=== PATIENT | male | born 1950 | race Caucasian/White ===

== ENCOUNTER 2019-06-02 08:53 | Day surgery (SDC) ==
[2019-06-01 14:23] LABS: HEMATOCRIT 43.9 % (42.0-52.0); HEMOGLOBIN 15.5 g/dL (14.0-18.0); MCH 29.6 PG (27-31); MCHC 35.3 g/dL (33-37); MCV 83.8 FL (81-99); RBC 5.24 XMIL (4.7-6.1); WBC 6.29 X1000 (4.8-10.8)
[2019-06-01 14:24] LABS: BASO# 0.02 X1000 (0.0-0.2); BASO% 0.3 % (0.0-0.8); EOS% 3.2 % (0.0-10.0); IMM GRAN# 0.03 X1000 (0.0-0.04); IMM GRAN% 0.5 % (0.0-0.5); LYMPH# 1.74 X1000 (1.2-3.4); LYMPH% 27.7 % (20.5-51.1); MONO# 0.59 X1000 (0.11-0.59); MONO% 9.4 % (1.7-9.3); MPV 9.6 FL (7.4-10.4); NEUT# 3.71 X1000 (1.4-6.5); NEUT% 58.9 % (42.2-75.2); PLT 281 X1000 (130-400)
--- NOTE | 2019-06-01 14:26 | Diag Imaging Result Doc PS360 ---
EXAM: CHEST-2 VIEWS 06/01/2019 HISTORY: PAT TECHNIQUE: PA and lateral chest COMMENT: There is no evidence of acute cardiac or pulmonary disease. Compared to 07/08/2018 there has been no significant change in the appearance of the chest. IMPRESSION: Stable chest. Electronically signed by Andrea Nguyễn 06/01/2019 2:23 PM
[2019-06-01 14:43] LABS: INR 1.13; PROTIME 14.6 Seconds (11.0-16.0)
[2019-06-01 14:44] LABS: PTT 33.8 Seconds (22.3-41.8)
[2019-06-01 14:46] LABS: AGAP 12; ALB/GLOB RATIO 1.3; ALBUMIN 4.4 g/dL (3.5-5.0); ALKALINE PHOSPHATASE 71 U/L (32-122); BUN 17 mg/dL (8-22); CALCIUM 9.5 mg/dL (8.8-10.2); CHLORIDE 103 mmol/L (98-107); COSMO 282; CREATININE 0.8 mg/dL (0.7-1.2); ESTIMATED GFR > 60; GLUCOSE 115 mg/dL (70-104); GOT 20 U/L (10-34); GPT 25 U/L (10-44); MAGNESIUM 2.1 mg/dL (1.5-2.7); SODIUM 140 mmol/L (136-145); TCO2 25 mmol/L (25-35); TOTAL BILIRUBIN 0.92 mg/dL (0.20-1.00); TOTAL PROTEIN 7.7 g/dL (6.3-8.3)
[~2019-06-02 08:53] MED LIST: HEPARIN 1000 UNITS/NS 2,000 UNIT/1,000 ML IV.SOLN ONE; XYLOCAINE 1% ONE
[2019-06-02] MEDS ORDERED: NS 1,000 ML ONE (09:38)
[2019-06-02] MEDS ORDERED: MORPHINE ONE (12:37)
[2019-06-02] MEDS ORDERED: VERSED ONE (12:37)
--- NOTE | 2019-06-02 14:13 | EKG Report ---
Test Performed on : 06/02/2019 2:07:28 PM Test Reason : s/p heart cath Blood Pressure : / mmHG Vent. Rate : 063 BPM Atrial Rate : 063 BPM P-R Int : 184 ms QRS Dur : 088 ms QT Int : 422 ms P-R-T Axes : 055 039 049 degrees QTc Int : 431 ms Normal sinus rhythm. Normal ECG No previous ECGs available Confirmed by Herlinda YOST, Kristian Neal ([id number]) on 06/02/2019 5:28:31 PM
[2019-06-02] MEDS ORDERED: CEPACOL SORE THROAT LOZENGE MT PRN (14:23)
[2019-06-02] MEDS ORDERED: MAGNESIUM SULFATE 3 GM in NS 100 ML IV PRN (14:23)
[2019-06-02] MEDS ORDERED: PERCOCET-5 PO PRN (14:23)
[2019-06-02] MEDS ORDERED: NITROGLYCERIN SL PRN (14:23)
[2019-06-02] MEDS ORDERED: ZOFRAN IV PRN (14:23)
[2019-06-02] MEDS ORDERED: RESTORIL PO PRN (14:23)
[2019-06-02] MEDS ORDERED: KLOR-CON PO PRN ×3 (14:23)
[2019-06-02] MEDS ORDERED: MAGNESIUM SULFATE 2 GM in STERILE WATER INJ. 50 ML IV PRN ×4 (14:23)
[2019-06-02] MEDS ORDERED: XANAX PO PRN (14:23)
[2019-06-02] MEDS ORDERED: MILK OF MAGNESIA PO PRN (14:23)
[2019-06-02] MEDS ORDERED: DULCOLAX PR PRN (14:23)
[2019-06-02] MEDS ORDERED: TYLENOL PO PRN (14:23)
[2019-06-02 16:50] VITALS: BP 130/74
--- NOTE | 2019-06-03 01:03 | CARDIAC CATH REPORT ---
PROCEDURE NAME: - PROCEDURE PERFORMED: Left heart catheterization and selective coronary angiography, and left ventriculography. INDICATIONS: Recent abnormal exercise stress test with exercise-induced ventricular arrhythmias (nonsustained ventricular tachycardia) in a patient with exertional neck discomfort and significant risk factors for coronary disease. ENTRY SITE: Right femoral artery. CATHETERS USED: A 5-Danish JL4, JR4, and pigtail. TECHNIQUE: After intravenous sedation with morphine and Versed, local anesthesia with lidocaine was applied over right femoral artery. Arterial access was established with placement of a 5- Danish sheath in the right femoral artery using modified Seldinger technique. Selective coronary angiography was performed, followed by left heart catheterization and left ventriculography. Upon completion of procedure, arterial sheath was removed from right femoral artery and hemostasis facilitated with manual pressure. The patient tolerated the procedure without apparent complications. FINDINGS: Hemodynamics: Aortic pressure 115/65 with a mean of 86, left ventricular pressure 125 over EDP of 6. COMMENTS ON HEMODYNAMICS: There is no significant gradient across aortic valve demonstrated on pullback from left ventricle. ANGIOGRAPHY: 1. Left ventriculogram of the left ventricles: Normal size without wall motion abnormality evident on MARKS projection. Estimated left ventricular ejection fraction appears to be at least 65%. There is no significant mitral regurgitation. 2. Left main coronary: Left main coronary is free of significant coronary stenosis. 3. Left anterior descending coronary: Left anterior descending coronary demonstrates a severe (approximately 80%) focal stenosis after the proximal 1/3 of the vessel before large septal perforated. The proximal left anterior descending coronary gives rise to a medium size 1st diagonal branch, which demonstrates a severe (95%) focal stenosis. The remainder of the left anterior descending coronary artery and its branches demonstrate mild irregularities but no significant coronary obstructive lesions. 4. Left circumflex: The left circumflex coronary gives rise to a medium sized 1st obtuse marginal from proximal to mid vessel. Left circumflex coronary subsequently gives rise to a medium to large 2nd obtuse marginal, and a medium to large posterolateral branch. The 1st obtuse marginal demonstrates a segment of atherosclerotic narrowing proximally, which at the ostium of the 1st obtuse marginal is approximately 50% diameter narrowing. The segment of atherosclerosis reaches a severity of approximately 75% luminal diameter narrowing distally. The [employer] home demonstrator lateral branch demonstrates a severe (80%) proximal stenosis. 5. Right coronary: The dominant right coronary artery is free of significant coronary stenosis. CONCLUSIONS: 1. Normal left ventricular systolic function without wall motion abnormality evident on MARKS projection. 2. Right dominant coronary anatomy as described with severe stenosis in left anterior descending coronary after proximal 1/3 of the vessel, severe stenosis in 1st diagonal branch, moderate segmentals stenosis proximally in 1st obtuse marginal, and severe stenosis and distal left circumflex coronary prior to posterior lateral branch. RECOMMENDATIONS: Consult Interventional Cardiology regarding revascularization options and possible staged intervention on left anterior descending coronary and left circumflex coronary. cc: Daniel Lai MD
== END 2019-06-02 18:28 | disposition home or self-care (01) ==
LOC: 2N 08:53 → OPS 08:53
PROVIDERS: ATTEND Internal Medicine Cardiovascular Disease